=== PATIENT | female | born 1990 | race Two or more races ===

== ENCOUNTER 2024-07-31 19:22 | Observation (INO) | payer MEDICAID, OTHER ==
[~2024-07-31] VITALS: Ht 175.3 cm; Wt 108.9 kg
[2024-07-31 21:15] LABS: Urine Amorphous Crystal FEW /hpf (None Seen); Urine Bacteria FEW /hpf (None Seen); Urine Blood Negative /uL (Negative); Urine Clarity Turbid (Clear); Urine Color Yellow (Yellow); Urine Mucus FEW (None Seen); Urine Protein, UAD 1+ (Negative); Urine Specific Gravity 1.028 (1.001-1.035); Urine Urobilinogen Normal (Negative); Urine WBC 27 /hpf (0 - 5); Urine pH 6.5 (5.0-9.0)
[2024-07-31 21:29] LABS: Protein, Urine 64.4 mg/dL (1-14)
[2024-07-31 21:30] LABS: Amphetamine Screen, Urine Neg (NEGATIVE)
[2024-07-31 21:31] LABS: Barbiturate Scree,Urine Neg (NEGATIVE); Benzodiazephine Screen, Urine Neg (NEGATIVE); Cannabinoid Screen, Urine Neg (NEGATIVE); Cocaine Screen, Urine Neg (NEGATIVE); Creatinine, Urine 130.51 mg/dL (30.0-125.0); Opiate Scree,Urine Neg (NEGATIVE); Phencyclidine Screen, Urine Neg (NEGATIVE); Urine Protein/Creatinine Ratio 0.49
[2024-07-31 22:01] LABS: Basophils # (auto) 0 10 ^3/uL (0-0.2); Basophils % (auto) 0.5 % (0.0-2.0); Eosinophils # (auto) 0 10 ^3/uL (0-0.8); Eosinophils % (auto) 0.4 % (0.0-7.0); Hematocrit 36.6 % (36.0-46.0); Hemoglobin 12.6 g/dL (12.2-16.2); Lymphocytes # (auto) 1.6 10 ^3/uL (0.4-5.4); Lymphocytes % (auto) 16.6 % (10.0-50.0); Mean Corpuscular Hemoglobin 31.7 pg (28.0-32.0); Mean Corpuscular Hgb Conc. 34.4 g/dL (32.0-36.0); Mean Corpuscular Volume 92.3 fL (80.0-100.0); Monocytes # (auto) 0.9 10 ^3/uL (0-1.3); Monocytes % (auto) 9.5 % (0.0-12.0); Nucleated Red Blood Cells % 0.2 %; Platelet Count (auto) 297 10^3/uL (140-450); Red Blood Cells 3.97 10^6/uL (4.0-5.20); Red Cell Distribution Width 13.6 % (11.8-14.3); White Blood Cell 9.6 10^3/uL (4.4-10.8)
[2024-07-31 22:19] LABS: INR 0.92 (0.9-1.15); Partial Thromboplastin Time 26.2 SEC (24.5-34.5); Prothrombin Time 9.8 sec (9.3-11.8)
[2024-07-31 22:25] LABS: Alanine Aminotransferase 20 U/L (7-40); Alkaline Phosphatase 118 U/L (46-116); Anion Gap 5 (5-15); Aspartate Aminotransferase 27 U/L (13-40); BUN/Creatinine Ratio 13.3 (10.0-20.0); Bilirubin, Total 0.3 mg/dL (0.2-1.0); Blood Urea Nitrogen 8 mg/dL (9-23); Calcium 9.4 mg/dL (8.7-10.4); Carbon Dioxide 22 mmol/L (20-31); Chloride 109 mmol/L (98-107); Glucose 74 mg/dL (74-106); Potassium 4.2 mmol/L (3.5-5.1); Sodium 136 mmol/L (136-145); Total Protein 6.7 g/dL (5.7-8.2); Uric Acid 6.4 mg/dL (3.1-7.8)
[2024-08-02 06:06] LABS: RPR Non Reactive (Non Reactive)
[2024-08-02 08:06] LABS: Rubella Antibodies, IgG <0.90 index (Immune >0.99)
[2024-08-02 10:07] LABS: QuantiFERON-TB Gold Plus Negative (Negative)
== END 2024-08-01 00:15 | disposition home or self-care (01) ==
LOC: LDRP 19:22
PROVIDERS: ADMIT Obstetrics & Gynecology; ATTEND Obstetrics & Gynecology
DX: O12.03 Gestational edema, third trimester (principal); O26.893 Other specified pregnancy related conditions, third trimester; M79.89 Other specified soft tissue disorders; Z3A.35 35 weeks gestation of pregnancy; Z91.040 Latex allergy status; Z79.899 Other long term (current) drug therapy
CPT/HCPCS: 36415; 59025; 76805; 76818; 80053; 80307; 81001; 81002; 82570; 83036; 84156; 84550; 85025; 85610; 85730; 86592; 86703; 86762; 86780; 86803; 86850; 86900; 86901; 87340; 94760; G0378

== ENCOUNTER 2024-08-03 08:51 | Observation (INO) | payer MEDICAID ==
[2024-08-03 16:26] LABS: Urine Bacteria FEW /hpf (None Seen); Urine Blood Negative /uL (Negative); Urine Clarity Ex.Turbid (Clear); Urine Color Light-Orange (Yellow); Urine Protein, UAD 1+ (Negative); Urine Specific Gravity 1.034 (1.001-1.035); Urine Urobilinogen Normal (Negative); Urine WBC 260 /hpf (0 - 5); Urine pH 6.5 (5.0-9.0)
[2024-08-03 18:11] LABS: Basophils # (auto) 0 10 ^3/uL (0-0.2); Basophils % (auto) 0.3 % (0.0-2.0); Eosinophils # (auto) 0 10 ^3/uL (0-0.8); Eosinophils % (auto) 0.4 % (0.0-7.0); Hematocrit 33.3 % (36.0-46.0); Lymphocytes # (auto) 1.2 10 ^3/uL (0.4-5.4); Lymphocytes % (auto) 15.1 % (10.0-50.0); Mean Corpuscular Volume 94.1 fL (80.0-100.0); Monocytes # (auto) 0.6 10 ^3/uL (0-1.3); Monocytes % (auto) 8.5 % (0.0-12.0); Neutrophils # (auto) 5.8 10 ^3/uL (1.6-8.6); Neutrophils % (auto) 75.7 % (37.0-80.0); Nucleated Red Blood Cells % 0.1 %; Platelet Count (auto) 258 10^3/uL (140-450); Red Blood Cells 3.54 10^6/uL (4.0-5.20); White Blood Cell 7.6 10^3/uL (4.4-10.8)
[2024-08-03 18:31] LABS: INR 0.93 (0.9-1.15); Partial Thromboplastin Time 25.2 SEC (24.5-34.5); Prothrombin Time 9.9 sec (9.3-11.8)
[2024-08-03 18:32] LABS: Protein, Urine 76.5 mg/dL (1-14)
[2024-08-03 18:35] LABS: Creatinine, Urine 149.36 mg/dL (30.0-125.0); Urine Protein/Creatinine Ratio 0.51
[2024-08-03 18:42] LABS: Alanine Aminotransferase 19 U/L (7-40); Albumin 3.4 g/dL (3.2-4.8); Alkaline Phosphatase 99 U/L (46-116); Anion Gap 8 (5-15); Aspartate Aminotransferase 26 U/L (13-40); BUN/Creatinine Ratio 13.5 (10.0-20.0); Blood Urea Nitrogen 10 mg/dL (9-23); Calcium 8.6 mg/dL (8.7-10.4); Carbon Dioxide 20 mmol/L (20-31); Chloride 113 mmol/L (98-107); Glucose 137 mg/dL (74-106); Sodium 141 mmol/L (136-145); Uric Acid 6.1 mg/dL (3.1-7.8)
[2024-08-03 18:43] LABS: Bilirubin, Total 0.3 mg/dL (0.2-1.0); Total Protein 5.6 g/dL (5.7-8.2)
[2024-08-03 18:51] LABS: Protein, Urine 76.4 mg/dL (1-14)
[2024-08-03 18:54] LABS: 24 Hr. Total Protein, Urine 1451.6 mg/24 Hr (<149.1)
[2024-08-03 18:56] LABS: Body Surface Area 2.12; Creatinine Clearance, Urine 223.35 mL/min (75-115)
== END 2024-08-03 19:30 | disposition home or self-care (01) ==
LOC: LDRP 14:56
PROVIDERS: ADMIT Obstetrics & Gynecology; ATTEND Obstetrics & Gynecology
DX: O14.03 Mild to moderate pre-eclampsia, third trimester (principal); O26.893 Other specified pregnancy related conditions, third trimester; M79.89 Other specified soft tissue disorders; Z3A.35 35 weeks gestation of pregnancy; Z91.040 Latex allergy status
CPT/HCPCS: 36415; 76818; 80053; 81001; 82565; 82570; 82575; 84156; 84550; 85025; 85610; 85730; G0378; 59025; 81002; 94760

== ENCOUNTER 2024-08-07 14:01 | Observation (INO) | payer MEDICAID ==
[2024-08-07] MEDS ORDERED: PREN1TAB71 OR (16:10)
== END 2024-08-07 17:50 | disposition home or self-care (01) ==
LOC: LDRP 15:09
PROVIDERS: ADMIT Obstetrics & Gynecology; ATTEND Obstetrics & Gynecology
DX: O14.93 Unspecified pre-eclampsia, third trimester (principal); O13.3 Gestational [pregnancy-induced] hypertension without significant proteinuria, third trimester; Z3A.36 36 weeks gestation of pregnancy; Z79.899 Other long term (current) drug therapy; Z98.890 Other specified postprocedural states
CPT/HCPCS: 59025; 76818; 81002; G0378

== ENCOUNTER 2024-08-10 12:24 | Observation (INO) | payer MEDICAID ==
[~2024-08-10] VITALS: Ht 175.3 cm; Wt 122.5 kg
[~2024-08-10 12:24] MED LIST: PREN1TAB71 OR
[2024-08-10 21:06] LABS: Basophils # (auto) 0 10 ^3/uL (0-0.2); Basophils % (auto) 0.2 % (0.0-2.0); Eosinophils # (auto) 0.1 10 ^3/uL (0-0.8); Eosinophils % (auto) 0.6 % (0.0-7.0); Hematocrit 36.2 % (36.0-46.0); Hemoglobin 12.4 g/dL (12.2-16.2); Lymphocytes # (auto) 1.3 10 ^3/uL (0.4-5.4); Lymphocytes % (auto) 16.4 % (10.0-50.0); Mean Corpuscular Hemoglobin 32.3 pg (28.0-32.0); Mean Corpuscular Hgb Conc. 34.3 g/dL (32.0-36.0); Mean Corpuscular Volume 94.2 fL (80.0-100.0); Monocytes # (auto) 0.6 10 ^3/uL (0-1.3); Monocytes % (auto) 7.9 % (0.0-12.0); Neutrophils # (auto) 6.1 10 ^3/uL (1.6-8.6); Neutrophils % (auto) 74.9 % (37.0-80.0); Nucleated Red Blood Cells % 0.2 %; Platelet Count (auto) 306 10^3/uL (140-450); Red Blood Cells 3.84 10^6/uL (4.0-5.20); White Blood Cell 8.2 10^3/uL (4.4-10.8)
[2024-08-10 21:14] LABS: Protein, Urine 127.5 mg/dL (1-14); Urine Bacteria FEW /hpf (None Seen); Urine Blood Negative /uL (Negative); Urine Clarity Turbid (Clear); Urine Color Yellow (Yellow); Urine Mucus FEW (None Seen); Urine Protein, UAD 2+ (Negative); Urine Specific Gravity 1.036 (1.001-1.035); Urine Urobilinogen 2 mg/dL (Negative); Urine WBC 23 /hpf (0 - 5)
[2024-08-10 21:17] LABS: Creatinine, Urine 232.82 mg/dL (30.0-125.0); Urine Protein/Creatinine Ratio 0.55
[2024-08-10 21:18] LABS: Amphetamine Screen, Urine Neg (NEGATIVE); Barbiturate Scree,Urine Neg (NEGATIVE); Benzodiazephine Screen, Urine Neg (NEGATIVE); Cannabinoid Screen, Urine Neg (NEGATIVE); Cocaine Screen, Urine Neg (NEGATIVE); Opiate Scree,Urine Neg (NEGATIVE); Phencyclidine Screen, Urine Neg (NEGATIVE)
[2024-08-10 21:20] LABS: Alanine Aminotransferase 19 U/L (7-40); Albumin 3.8 g/dL (3.2-4.8); Alkaline Phosphatase 121 U/L (46-116); Anion Gap 7 (5-15); Aspartate Aminotransferase 23 U/L (13-40); BUN/Creatinine Ratio 7.8 (10.0-20.0); Bilirubin, Total 0.3 mg/dL (0.2-1.0); Blood Urea Nitrogen 6 mg/dL (9-23); Carbon Dioxide 24 mmol/L (20-31); Chloride 107 mmol/L (98-107); Glucose 116 mg/dL (74-106); Potassium 3.8 mmol/L (3.5-5.1); Sodium 138 mmol/L (136-145); Total Protein 6.2 g/dL (5.7-8.2); Uric Acid 5.6 mg/dL (3.1-7.8)
[2024-08-10 21:27] LABS: INR 0.94 (0.9-1.15); Partial Thromboplastin Time 25.4 SEC (24.5-34.5)
== END 2024-08-10 22:17 | disposition home or self-care (01) ==
LOC: LDRP 19:58
PROVIDERS: ADMIT Obstetrics & Gynecology; ATTEND Obstetrics & Gynecology
DX: O13.3 Gestational [pregnancy-induced] hypertension without significant proteinuria, third trimester (principal); Z3A.37 37 weeks gestation of pregnancy; Z79.899 Other long term (current) drug therapy
CPT/HCPCS: 36415; 59025; 76818; 80053; 80307; 81001; 82570; 84156; 84550; 85025; 85610; 85730; 94760; G0378

== ENCOUNTER 2024-08-14 14:28 | Observation (INO) | payer MEDICAID ==
--- NOTE | 2024-08-14 16:21 | DVH ---
Procedure: US BIOPHYSICAL PROFILE 08/14/2024 03:44 PM Indication:PIH. Comparison: US BIOPHYSICAL PROFILE on DOS: 08/10/24, US BIOPHYSICAL PROFILE on DOS: 08/07/24, US BIOPH YSICAL PROFILE on DOS: 08/03/24 Technique: Sonogram of gravid uterus utilizing grayscale and color techniques. FINDINGS: Single living intrauterine gestation. Presentation: Cephalic Placenta: Posterior with no evidence for previa or abruption heart rate: 137 bpm LOUIE: 18.5 cm Maternal cervix: Not visualized Biophysical Profile: breathing score: 2 movement score: 2 tone: 2 Quantitative LOUIE score: 2 Total score: 8/8 IMPRESSION: 1. Single living as above. 2. Biophysical profile score: 8/8.
--- NOTE | 2024-08-15 07:53 | DVHDS2 ---
Physician Discharge Progress N Final Diagnosis: pih Operations or Procedures: Operations or Procedures nst,sono Condition on Discharge: Good Disposition: Home Discharge Instructions: Diet: Regular Activity: No Restrictions, As Tolerated Medications: na Follow Up Care: Specialist: 2d Discharge Statement: "Patient was advised to return to the ER or call 911 if any headaches, dizziness, shortness of breath, chest pain, abdominal pain, bleeding, fevers, or worsening of medical condition. Patient was counseled about treatment plan, medications, possible side effects, patientverbalized understanding. All questions were answered to the best of my ability. This discharge took greater then 30 minutes in planning, reviewing documentation, counseling the patient, and discussing with other team members." CANDELARIA COLEMAN DO Aug 15, 2024 07:53
== END 2024-08-14 18:05 | disposition home or self-care (01) ==
LOC: UNDOADMOB 15:27 → LDRP 15:27 → UNDODISOB 18:05
PROVIDERS: ADMIT Obstetrics & Gynecology; ATTEND Obstetrics & Gynecology
DX: O13.3 Gestational [pregnancy-induced] hypertension without significant proteinuria, third trimester (principal); Z3A.37 37 weeks gestation of pregnancy
CPT/HCPCS: 76818; G0378; 59025; 81002; 94760

== ENCOUNTER 2024-08-16 15:19 | Inpatient (IN) | payer MEDICAID ==
[~2024-08-16] VITALS: Ht 175.3 cm; Wt 124.3 kg
--- NOTE | 2024-08-16 16:16 | DVH ---
Procedure: US BIOPHYSICAL PROFILE 08/16/2024 03:34 PM Indication:PIH. Comparison: US BIOPHYSICAL PROFILE on DOS: 08/14/24, US BIOPHYSICAL PROFILE on DOS: 08/10/24, US BIOPHY SICAL PROFILE on DOS: 08/07/24 Technique: Sonogram of gravid uterus utilizing grayscale and color techniques. FINDINGS: Single living intrauterine gestation. Presentation: Cephalic Placenta: Posterior heart rate: 154 bpm LOUIE: 19.3 cm, DVP: 5.9 cm Maternal cervix: Not visualized Biophysical Profile: breathing score: 2 movement score: 2 tone: 2 Quantitative LOUIE score: 2 Total score: 8/8 IMPRESSION: 1. Single living as above. 2. Biophysical profile score: 8/8.
[2024-08-16] MEDS ORDERED: miSOPROStol 50 MCG per PRE-CUT 1/2 TAB PO PRN (16:45)
[2024-08-16] MEDS ORDERED: LIDOCAINE 2%HCL (LOCAL ANESTH.) INJ 20ML MDV IJ PRN (16:45)
[2024-08-16 17:07] LABS: Basophils # (auto) 0 10 ^3/uL (0-0.2); Basophils % (auto) 0.2 % (0.0-2.0); Eosinophils # (auto) 0 10 ^3/uL (0-0.8); Eosinophils % (auto) 0.5 % (0.0-7.0); Hematocrit 35.3 % (36.0-46.0); Hemoglobin 12.1 g/dL (12.2-16.2); Lymphocytes # (auto) 1.2 10 ^3/uL (0.4-5.4); Lymphocytes % (auto) 12.7 % (10.0-50.0); Mean Corpuscular Hemoglobin 32.1 pg (28.0-32.0); Mean Corpuscular Hgb Conc. 34.2 g/dL (32.0-36.0); Mean Corpuscular Volume 93.7 fL (80.0-100.0); Monocytes # (auto) 0.6 10 ^3/uL (0-1.3); Monocytes % (auto) 6.6 % (0.0-12.0); Neutrophils # (auto) 7.3 10 ^3/uL (1.6-8.6); Platelet Count (auto) 286 10^3/uL (140-450); Red Blood Cells 3.76 10^6/uL (4.0-5.20); Red Cell Distribution Width 14.1 % (11.8-14.3); White Blood Cell 9.1 10^3/uL (4.4-10.8)
[2024-08-16 17:22] LABS: INR 0.94 (0.9-1.15); Partial Thromboplastin Time 25.5 SEC (24.5-34.5)
[2024-08-16 17:28] LABS: Alanine Aminotransferase 17 U/L (7-40); Albumin 3.8 g/dL (3.2-4.8); Alkaline Phosphatase 118 U/L (46-116); Anion Gap 7 (5-15); Aspartate Aminotransferase 31 U/L (13-40); BUN/Creatinine Ratio 9.4 (10.0-20.0); Blood Urea Nitrogen 9 mg/dL (9-23); Calcium 9.3 mg/dL (8.7-10.4); Carbon Dioxide 25 mmol/L (20-31); Chloride 105 mmol/L (98-107); Glucose 82 mg/dL (74-106); Potassium 4.7 mmol/L (3.5-5.1); Sodium 137 mmol/L (136-145); Uric Acid 6.8 mg/dL (3.1-7.8)
[2024-08-16 17:29] LABS: Bilirubin, Total 0.3 mg/dL (0.2-1.0); Total Protein 6.3 g/dL (5.7-8.2)
[2024-08-16 18:41] LABS: Sodium Urine 138 mmol/L (40-220)
[2024-08-16 18:47] LABS: Amphetamine Screen, Urine Neg (NEGATIVE); Protein, Urine 84.7 mg/dL (1-14)
[2024-08-16 18:48] LABS: Barbiturate Scree,Urine Neg (NEGATIVE); Benzodiazephine Screen, Urine Neg (NEGATIVE); Cocaine Screen, Urine Neg (NEGATIVE); Creatinine, Urine 163.15 mg/dL (30.0-125.0); Opiate Scree,Urine Neg (NEGATIVE); Urine Protein/Creatinine Ratio 0.52
[2024-08-16 18:49] LABS: Cannabinoid Screen, Urine Neg (NEGATIVE); Phencyclidine Screen, Urine Neg (NEGATIVE)
--- NOTE | 2024-08-16 18:56 | DVHHP ---
ADMIT DATE: 08/16/2024 CHIEF COMPLAINT: Induction of labor for preeclampsia. HISTORY OF PRESENT ILLNESS: The patient is a 34-year-old 3, para 0 with EDC 09/02/2024, estimated gestational age of 37 weeks, admitted for induction of labor. The patient was noted to have 4+ pitting edema bilaterally. UPC 2 days ago was 0.55, blood pressure was 140/86 in the clinic. Subsequently, the patient was sent for evaluation to labor and delivery. In labor and delivery, the patient had a spontaneous deceleration for 3 minutes for which she was admitted and a decision was made to proceed for induction of labor. She denies having any epigastric pain or headache, no vaginal bleeding or rupture of membrane. PAST MEDICAL HISTORY: None. PAST SURGICAL HISTORY: D and C. SOCIAL HISTORY: None. FAMILY HISTORY: None. OBSTETRIC AND GYNECOLOGIC HISTORY: Blood type A positive, rubella immune, GBS negative. REVIEW OF SYSTEMS: Consistent with HPI. PHYSICAL EXAMINATION: VITAL SIGNS: Stable, afebrile. HEENT: Within normal limits. CARDIOVASCULAR: Regular rate and rhythm. LUNGS: Clear to auscultation. BREASTS: Symmetrical. No masses. ABDOMEN: Gravid. Positive heart. PELVIC: Cervix closed, thick, high. EXTREMITIES: No clubbing, cyanosis. +4 pitting edema bilaterally. IMPRESSION: * Intrauterine at 37 weeks with preeclampsia. * Spontaneous deceleration. PLAN: Observe for prolonged monitoring. Possibility of discussed with the patient. The patient needs to be induced due to nonreassuring heart tracing as well as preeclampsia. All questions answered. The patient fully understands and agrees. DO YA Ingram TID: [id number] RECEIPT: [id number]
[2024-08-16 19:07] LABS: Urine Bacteria FEW /hpf (None Seen); Urine Blood Negative /uL (Negative); Urine Clarity Turbid (Clear); Urine Color Yellow (Yellow); Urine Mucus FEW (None Seen); Urine Protein, UAD 1+ (Negative); Urine Specific Gravity 1.027 (1.001-1.035); Urine Urobilinogen Normal (Negative); Urine WBC 102 /hpf (0 - 5); Urine pH 6.5 (5.0-9.0)
[2024-08-16] MEDS ORDERED: TERBUTALINE SULFATE 1 MG/ML 1ML VIAL SC SCH (19:15)
[2024-08-16] MEDS ORDERED: diphenhdrAMINE HCL 50 MG/1 ML VL IV PRN (19:45)
[2024-08-17] MEDS: LACTATED RINGER'S 1,000 ML IV SCH (01:39)
[2024-08-17] MEDS: DINOPROSTONE 10MG VAG SUPP PV ONE (08:20)
--- NOTE | 2024-08-17 09:23 | DVHPN2 ---
OB Labor Progress Note Date and Time Seen Date Seen: Aug 17, 2024 Time Seen: 08:00 Subjective Patient reports: No new complaints, Feels better Subjective Comment Denies any symptoms of PIH other than LE Edema (bilaterally) Objective Vital Signs Afeb VS stable BP normal Monitoring Method Monitoring Method: External Heart Rate Heart Rate Baseline: 140 Heart Rate Variability: Moderate Presence of FHR Accelerations: Yes Presence of FHR Decelerations: Yes (Intermittent) Heart Rate Type of Decel: Variable Decelerations, Late Decelerations Contractions Contractions Frequency: None Membranes Membranes: Intact Vaginal Exam Vag Exam Deferred: No Vaginal Exam Dilation: 0 Vaginal Exam Effacement: 0 Vaginal Exam Station: -3 Vaginal Exam Presentation: VTX Medications Medications - Pitocin: No Medication - Epidural: No Lab Results Lab Results Current Medications Medications (Trade) Dose Ordered Sig/Nuno Start Time Stop Time Status Last Admin Dose Admin Lactated Ringer's 1,000 ml @ 125 mls/hr Q8H 08/16/24 16:45 08/17/24 01:39 125 MLS/HR Palomo Menard (Tucks) 1 pad PRN PRN 08/16/24 16:45 Sodium Lauryl Sulfate (Phisoderm) 240 ml PRN PRN 08/16/24 16:45 Benzocaine (Dermoplast) 1 applic PRN PRN 08/16/24 16:45 Misoprostol (Cytotec) 50 mcg Q4HPRN PRN 08/16/24 16:45 Lidocaine HCl (Xylocaine) 20 ml ONCE PRN 08/16/24 16:45 Oxytocin 500 ml @ 999 mls/hr Q31M ONCE 08/16/24 17:00 08/16/24 17:30 DC Oxytocin 500 ml @ 125 mls/hr Q4H ONCE 08/16/24 17:30 08/16/24 21:29 DC Terbutaline Sulfate (Brethine Inj) 0.25 mg Q20M 08/16/24 19:15 08/16/24 21:53 DC Diphenhydramine HCl (Benadryl Injection) 25 mg Q4HP PRN 08/16/24 19:45 Dinoprostone (Cervidil Suppository) 1 supp ONCE ONCE 08/17/24 07:45 08/17/24 07:46 DC 08/17/24 08:20 1 SUPP Laboratory Tests Test 08/16/24 18:09 08/16/24 16:50 Range/Units Urine Color Yellow Yellow Urine Clarity Turbid H Clear Urine pH 6.5 5.0-9.0 Urine Specific Thornton 1.027 1.001-1.035 Urine Protein 1+ H Negative Urine Ketones 1+ H Negative Urine Blood Negative Negative /uL Urine Nitrite Negative Negative Urine Bilirubin Negative Negative Urine Urobilinogen Normal Negative mg/dL Urine Leukocyte Esterase 3+ Negative /uL Urine RBC 5 0 - 4 /hpf Urine WBC 102 0 - 5 /hpf Urine Squamous Epithelial Cells Mod <5 /hpf Urine Bacteria Few H None Seen /hpf Urine Mucus Few None Seen Urine Creatinine 163.15 H 30.0-125.0 mg/dL Urine Protein/Creatinine Ratio 0.52 Urine Sodium 138 40-220 mmol/L Urine Glucose Normal Normal mg/dL Urine Total Protein 84.7 H 1-14 mg/dL Urine Opiates Screen Neg NEGATIVE Urine Fentanyl Screen Neg NEGATIVE Urine Barbiturates Screen Neg NEGATIVE Urine Phencyclidine Screen Neg NEGATIVE Urine Amphetamines Screen Neg NEGATIVE Urine Benzodiazepines Screen Neg NEGATIVE Urine Cocaine Screen Neg NEGATIVE Urine Cannabinoids Screen Neg NEGATIVE Chlamydia trachomatis (PAYAM) Pending Neisseria gonorrhoeae (PAYAM) Pending White Blood Count 9.1 4.4-10.8 10^3/uL Red Blood Count 3.76 L 4.0-5.20 10^6/uL Hemoglobin 12.1 L 12.2-16.2 g/dL Hematocrit 35.3 L 36.0-46.0 % Mean Corpuscular Volume 93.7 80.0-100.0 fL Mean Corpuscular Hemoglobin 32.1 H 28.0-32.0 pg Mean Corpuscular Hemoglobin Concent 34.2 32.0-36.0 g/dL Red Cell Distribution Width 14.1 11.8-14.3 % Platelet Count 286 140-450 10^3/uL Mean Platelet Volume 7.3 6.9-10.8 fL Neutrophils (%) (Auto) 80.0 37.0-80.0 % Lymphocytes (%) (Auto) 12.7 10.0-50.0 % Monocytes (%) (Auto) 6.6 0.0-12.0 % Eosinophils (%) (Auto) 0.5 0.0-7.0 % Basophils (%) (Auto) 0.2 0.0-2.0 % Neutrophils # (Auto) 7.3 1.6-8.6 10 ^3/uL Lymphocytes # (Auto) 1.2 0.4-5.4 10 ^3/uL Monocytes # (Auto) 0.6 0-1.3 10 ^3/uL Eosinophils # (Auto) 0 0-0.8 10 ^3/uL Basophils # (Auto) 0 0-0.2 10 ^3/uL Nucleated Red Blood Cells 0.0 % Prothrombin Time 10.0 9.3-11.8 sec Prothrombin Time INR 0.94 0.9-1.15 Activated Partial Thromboplast Time 25.5 24.5-34.5 SEC Sodium Level 137 136-145 mmol/L Potassium Level 4.7 3.5-5.1 mmol/L Chloride Level 105 98-107 mmol/L Carbon Dioxide Level 25 20-31 mmol/L Anion Gap 7 5-15 Blood Urea Nitrogen 9 9-23 mg/dL Creatinine 0.96 0.550-1.02 mg/dL Glomerular Filtration Rate Calc 81 >90 mL/min BUN/Creatinine Ratio 9.4 L 10.0-20.0 Serum Glucose 82 74-106 mg/dL Uric Acid 6.8 3.1-7.8 mg/dL Calcium Level 9.3 8.7-10.4 mg/dL Total Bilirubin 0.3 0.2-1.0 mg/dL Aspartate Amino Transferase (AST) 31 13-40 U/L Alanine Aminotransferase (ALT) 17 7-40 U/L Alkaline Phosphatase 118 H 46-116 U/L Total Protein 6.3 5.7-8.2 g/dL Albumin 3.8 3.2-4.8 g/dL Rapid Plasma Reagin Pending Treponema pallidum Ab (TP-PA) Pending Hepatitis C Antibody Negative Negative Assessment Assessment Early term IUP 37+ wk, mild PIH Induction of labor Intermittent Categ II FHR Plan Plan Overall status reassuring. Patient given option for 1' C/S delivery and declined I placed Cervidil 10mg PV x 1 dose for labor induction I discussed R/B/A of induction and indication for c/section in case of failure of IOL or NRFHR in labor. Agrees w/ plan of care. Plan discussed with: Patient, Other (RN) ДМИТРИЙ CORTES DO Aug 17, 2024 09:23
--- NOTE | 2024-08-17 09:57 | DVHPN2 ---
Chief Complaints Patient reports: No new complaints, Feels better Nursing reports: No new complaints Objective Medications Current Medications Medications (Trade) Dose Ordered Sig/Nuno Route PRN Reason Start Time Stop Time Status Last Admin Benzocaine (Dermoplast) 1 applic PRN PRN TOP PERINEAL AREA DISCOMFORT 08/16/24 16:45 Diphenhydramine HCl (Benadryl Injection) 25 mg Q4HP PRN IV FOR INSOMNIA 08/16/24 19:45 Lactated Ringer's 1,000 ml @ 125 mls/hr Q8H IV 08/16/24 16:45 08/17/24 01:39 Lidocaine HCl (Xylocaine) 20 ml ONCE PRN IJ PERINEAL AREA DISCOMFORT 08/16/24 16:45 Misoprostol (Cytotec) 50 mcg Q4HPRN PRN PO CERVICAL RIPENING 08/16/24 16:45 Sodium Lauryl Sulfate (Phisoderm) 240 ml PRN PRN TOP PERINEAL AREA DISCOMFORT 08/16/24 16:45 Witch Sailaja (Tucks) 1 pad PRN PRN TOP PERINEAL AREA DISCOMFORT 08/16/24 16:45 Lungs: Normal Cardiovascular: Normal Extremities: Normal Studies Laboratory Tests 08/16/24 16:50 Test 08/16/24 16:50 Range/Units Serum Glucose 82 74-106 mg/dL Ass/Plan Assessment iup at 37wks [facility] Plan discussed pcs with her and notified her taht dr ro will take over care dr ro aware of pt,pt endorsed to him CANDELARIA COLEMAN DO Aug 17, 2024 09:57
[2024-08-17] MEDS ORDERED: ePHEDrine SULFATE 50 MG/ML AMP IV ONE (13:15)
[2024-08-17] MEDS ORDERED: NALOXONE HCL 0.4 MG/ML VIAL IV ONE (13:15)
[2024-08-17] MEDS: DERMOPLAST 60ML BOTTLE TOP PRN (14:21)
[2024-08-17] MEDS: WITCH HAZEL-GLYCERIN PAD TOP PRN (14:21)
[2024-08-17] MEDS: PHISODERM TOP SOLN 240ML BTL TOP PRN (14:21)
[2024-08-17] MEDS: LACT. RINGERS/OXYTOCIN 20UNITS 500 ML IV ONE ×2 (14:23→14:24)
[2024-08-17] MEDS: ROPIVACAINE HCL 200 ML ONE (14:29)
--- NOTE | 2024-08-17 14:44 | LDN2 ---
Labor and Delivery Note Date 08/17/24 Age 34 3 Para 1 AB 2 EDC 09-02 EGA 37wks Diagnosis induction for pih,non reassuring fht Vacuum Assisted: Yes Apgars 9-9 Nuchal Cord Transected: No Amniotic Fluid: Clear Anesthesia epidural Episiotomy: No Extension: Yes (2nd dge perineal lac) Repaired with 2-0 chromic EBL 300ml Labs Laboratory Tests 07/31/24 21:30: Hepatitis B Surface Antigen Negative, HIV (1&2) Antibody Negative Blood Bank 08/16/24 16:50: Blood Type A POSITIVE Complications none Conditions stable Comments/Significant Med Francis spece xam no cxal lac,vaccum applied one pull successful at 3+ station pt was unable to push due to epidural and heart tone was low.cord blood gases obtanied.pt was notified for vaccum need and she agreed CANDELARIA COLEMAN DO Aug 17, 2024 14:44
[2024-08-17 15:05] VITALS: PULSE 91; RESP 18; O2SAT 98
[2024-08-17] MEDS ORDERED: ACETAMINOPHEN 325 MG TAB PO PRN (17:00)
[2024-08-17] MEDS ORDERED: ONDANSETRON ODT 4 MG TAB PO PRN (17:00)
[2024-08-17 19:00] VITALS: BP 150/71; PULSE 95; RESP 18; TEMP 98.3; O2SAT 95
[2024-08-17] MEDS: DOCUSATE SOD 100 MG CAP PO SCH (21:49)
[2024-08-17 23:00] VITALS: BP 137/67; PULSE 100; RESP 18; TEMP 98; O2SAT 97
[2024-08-18 03:00] VITALS: BP 137/74; PULSE 78; RESP 18; TEMP 98.3; O2SAT 96
--- NOTE | 2024-08-18 03:56 | DVHPN2 ---
Progress Note Date Seen: Aug 18, 2024 Subjective PPD#1 s/p Vacuum assisted vaginal delivery S: Feeling well. Mild lochia, no pain vital signs Vital Sign Date Time Temp Pulse Resp B/P (MAP) Pulse Ox O2 Delivery O2 Flow Rate FiO2 08/18/24 03:00 98.3 78 18 137/74 (95) 96 98.3 08/17/24 19:00 Room Air medications Current Medications Medications Dose Ordered Sig/Nuno Route Start Time Stop Time Status Last Admin Dose Admin Lactated Ringer's 1,000 ml @ 125 mls/hr Q8H IV 08/16/24 16:45 08/17/24 14:25 125 MLS/HR Witch Sailaja 1 pad PRN PRN TOP 08/16/24 16:45 08/17/24 14:21 1 PAD Sodium Lauryl Sulfate 240 ml PRN PRN TOP 08/16/24 16:45 08/17/24 14:21 240 ML Benzocaine 1 applic PRN PRN TOP 08/16/24 16:45 08/17/24 14:21 1 APPLIC Ibuprofen 600 mg Q6HP PRN PO 08/17/24 17:00 Acetaminophen 650 mg Q4HP PRN PO 08/17/24 17:00 Ondansetron HCl 4 mg Q4HPRN PRN PO 08/17/24 17:00 Docusate Sodium 200 mg HS PO 08/17/24 22:00 08/17/24 21:49 200 MG laboratory and microbiology Laboratory Tests 08/16/24 16:50 Test 08/16/24 16:50 Range/Units Serum Glucose 82 74-106 mg/dL Objective O: AFVSS Chest: heart and lung sounds normal. Abd soft, non-tender, fundus firm, BS, no rebound or guarding, Incision - dressing and incision clean, dry, intact Ext Neg Homans, Non-tender, edema 3+ bilaterally to LE Lochia - minimal Labs Reviewed Assessment/Plan PPD#1 s/p VAVD, doing well LE edema, improving Plan: Continue supportive care D/C planning Plan discussed with: Patient, Other (RN) ДМИТРИЙ CORTES DO Aug 18, 2024 03:56
[2024-08-18 07:06] LABS: RPR Non Reactive (Non Reactive)
[2024-08-18 07:17] VITALS: BP 132/71; PULSE 78; RESP 18; TEMP 98; O2SAT 96
[2024-08-18] MEDS: IBUPROFEN 600 MG TAB PO PRN (07:58)
[2024-08-18 11:00] VITALS: BP 133/67; PULSE 83; RESP 16; TEMP 98.2; O2SAT 96
[2024-08-18 13:07] LABS: Chlamydia Trachomatis, NAA Negative (Negative); Neisseria gonorrhoeae, NAA Negative (Negative)
[2024-08-18 15:15] VITALS: BP 133/70; PULSE 88; RESP 16; TEMP 98; O2SAT 96
--- NOTE | 2024-08-18 18:10 | DVHDS2 ---
Obstetrics Discharge Summary Obstetrics Discharge Summary Date of Admission: Aug 16, 2024 Date of Discharge: Aug 18, 2024 Reason For Admission: Induction of Labor Procedures: NST Intrapartum Procedures: Spontaneous vaginal deliv, Vacuum Extraction Operative Complicat: Laceration (Perineal) Discharge Diagnosis: Delivery Discharge Information: Activity (Unrestricted), Diet (Routine), Medications (None), Instructions (Other), Discharge to (Other), Discarge date (08-18) CANDELARIA COLEMAN DO Aug 18, 2024 18:10
[2024-08-20 10:06] LABS: Treponema Pallidum Ab LC Non Reactive (Non Reactive)
== END 2024-08-18 17:43 | disposition left against medical advice (07) | DRG 560 ==
LOC: LDRP 15:19 → UNDOADMOB 15:19 → LDRP 15:26 → OBSVTOIN 16:35 → LDRP 16:42
PROVIDERS: ADMIT Obstetrics & Gynecology; ATTEND Obstetrics & Gynecology
PROC: 10D07Z6 Extraction of Products of Conception, Vacuum, Via Natural or Artificial Opening (ICD-10-PCS; principal; 2024-08-17)
PROC: 0KQM0ZZ Repair Perineum Muscle, Open Approach (ICD-10-PCS; 2024-08-17)
PROC: 3E0P7VZ Introduction of Hormone into Female Reproductive, Via Natural or Artificial Opening (ICD-10-PCS; 2024-08-17)
PROC: 3E0R3BZ Introduction of Anesthetic Agent into Spinal Canal, Percutaneous Approach (ICD-10-PCS; 2024-08-17)
PROC: 00HU33Z Insertion of Infusion Device into Spinal Canal, Percutaneous Approach (ICD-10-PCS; 2024-08-17)
DX: O13.4 Gestational [pregnancy-induced] hypertension without significant proteinuria, complicating childbirth (principal); Z37.0 Single live birth; O60.14X0 Preterm labor third trimester with preterm delivery third trimester, not applicable or unspecified; O76 Abnormality in fetal heart rate and rhythm complicating labor and delivery; O70.1 Second degree perineal laceration during delivery; Z53.29 Procedure and treatment not carried out because of patient's decision for other reasons; Z3A.37 37 weeks gestation of pregnancy
CPT/HCPCS: 36415; 59025; 59409; 62282; 76818; 80053; 80307; 81001; 81002; 82570; 84156; 84300; 84550; 85025; 85610; 85730; 86592; 86780; 86803; 86850; 86900; 86901; 94760; 94762; 96360; 96361; 96365; 96366; G0378; J2590